=== PATIENT | male | born 1985 | race African-American/Black ===

== ENCOUNTER 2016-08-13 08:46 | Emergency (ER) | payer OTHER ==
[2016-08-13 08:59] VITALS: BP 154/83
--- NOTE | 2016-08-13 10:09 | RAD ---
INDICATION: LEFT wrist pain post fall multiple months ago. Decreased range of motion. Mostly painful on flexion and with pressure on wrist/pushing. COMPARISON: None. TECHNIQUE: AP, lateral, and oblique views LEFT wrist. REPORT: Normal articular alignment. Negative for fracture. No significant arthropathic change evident. Unremarkable soft tissue contours. IMPRESSION: Negative radiographic exam of the LEFT wrist.
--- NOTE | 2016-08-13 10:18 | ED ---
Upper Extremity Pain - HPI Summary HPI Summary: 31M presents with left wrist pain for a couple months. He states that he fell many months ago and thought he broke his wrist on the ulnar side of his left hand. He states he thought the hand healed with an abnormality. He states the pain is worst when he is in the push up position and places weight on that hand. He states he is ambidextrous but uses his left hand the most. He denies any numbness or tingling. He states occasionally he has weakness in his hand. - History of Current Complaint Chief Complaint: EDExtremityUpper Stated Complaint: LEFT HAND INJURY Time Seen by Provider: 08/13/16 09:28 - Allergies/Home Medications Allergies/Adverse Reactions: Allergies Allergy/AdvReac Type Severity Reaction Status Date / Time No Known Allergies Allergy Verified 08/13/16 08:56 PMH/Surg Hx/FS Hx/Imm Hx Endocrine/Hematology History: Denies: Hx Anticoagulant Therapy Cardiovascular History: Denies: Hx Hypertension Infectious Disease History: No Infectious Disease History: Denies: Traveled Outside the [place] in Last 30 Days - Family History Known Family History: Negative: Cardiac Disease - Social History Alcohol Use: Occasionally Substance Use Type: Reports: None Smoking Status (MU): Never Smoked Tobacco Review of Systems Negative: Fever Negative: Chest Pain Negative: Shortness Of Breath Positive: Myalgia - left wrist pain All Other Systems Reviewed And Are Negative: Yes Physical Exam Triage Information Reviewed: Yes Vital Signs On Initial Exam: Initial Vitals Temp Pulse Resp BP Pulse Ox 96.9 F 80 16 154/83 97 08/13/16 08:56 08/13/16 08:56 08/13/16 08:56 08/13/16 08:56 08/13/16 08:56 Vital Signs Reviewed: Yes Appearance: Positive: Well-Appearing Skin: Positive: Warm, Dry Head/Face: Positive: Normal Head/Face Inspection Eyes: Positive: Normal, Conjunctiva Clear Respiratory/Lung Sounds: Positive: Clear to Auscultation, Breath Sounds Present Cardiovascular: Positive: Normal, RRR Musculoskeletal: Positive: Strength/ROM Intact - of left wrist, Other - good pulses, capillary refill < 2 secs, pain over lunate of left wrist,. Negative: Edema Left Diagnostics - Vital Signs Vital Signs Temp Pulse Resp BP Pulse Ox 08/13/16 08:56 96.9 F 80 16 154/83 97 - Laboratory Lab Statement: Any lab studies that have been ordered have been reviewed, and results considered in the medical decision making process. - Radiology wrist Xray Interpretation: No Acute Changes - IMPRESSION: Negative radiographic exam of the LEFT wrist. Radiology Interpretation Completed By: Radiologist Course/Dx - Course Course Of Treatment: 31M presents with left wrist pain for couple months. states had injury a couple months ago and though healed wrong. has increased pain due to starting to work out more. full ROM on exam. do not suspect carpel tunnel as no numbness or tingling. xray normal with no old fx seen. offered brace which patient refused. told to treat conservatively. patient understands and agrees with plan - Diagnoses Differential Diagnosis/HQI/PQRI: Positive: Fracture (Closed), Strain, Sprain Provider Diagnoses: Left wrist pain Discharge - Discharge Plan Condition: Stable Disposition: HOME Patient Education Materials: Wrist Sprain (ED) Referrals: [facility] [place] [facility]YSICIAN REFERRAL [Outside] Additional Instructions: Take Tylenol or ibuprofen every 6 hours as needed for pain Apply ice, rest, elevate Establish care with primary care physician and follow up as soon as possible Return to ED if develop numbness, tingling, inability to move joint, or any new or worsening symptoms
== END 2016-08-13 11:03 | disposition home or self-care (01) ==
LOC: ED 08:46
DX: M25.532 Pain in left wrist (principal)
CPT/HCPCS: 99281

== ENCOUNTER 2017-01-14 10:01 | Emergency (ER) | payer SELFPAY ==
[2017-01-14] MEDS ORDERED: Ondansetron INJ* 2 MG/ML VIAL IV ONE (10:26)
[2017-01-14] MEDS ORDERED: Albuterol/Ipratropium NEB.SOL* Albuterol 2.5 MG/Ipratropium 0.5 MG 3 ML INH ONE (10:28)
[2017-01-14] MEDS: NS 0.9% 1000 ML* 2,000 ML IV ONE ×2 (10:56→10:57)
[2017-01-14 10:59] LABS: Hematocrit 47 % (42-52); Hemoglobin 15.3 g/dl (14.0-18.0); Mean Corpuscular HGB Conc 33 g/dl (31-36); Mean Corpuscular Hemoglobin 27 pg (27-31); Mean Corpuscular Volume 83 fL (80-94); Mean Platelet Volume 9 um3 (7.4-10.4); Red Cell Distribution Width 15 % (10.5-15); White Blood Count 7.7 10^3/ul (3.5-10.8)
[2017-01-14 11:01] LABS: Comments Flag Yes
[2017-01-14 11:02] LABS: Albumin 4.6 g/dL (3.2-5.2); BUN/Creatinine Ratio 13.3 (8-20); C Reactive Protein 1.12 mg/L (< 5.00); Calcium 9.6 mg/dL (8.6-10.3); EGFR African American 105.3 (>60); EGFR Non-African American 81.9 (>60); Total Bilirubin 0.4 mg/dL (0.2-1.0); Total Protein 7.6 g/dL (6.4-8.9)
--- NOTE | 2017-01-14 11:12 | RAD ---
Indication: Cough, shortness of breath. 2 views of the chest including dual energy PA views demonstrate no mediastinal shift. Heart is of normal size and configuration. Lung rowe demonstrate no pleural fluid, pneumonia or pneumothorax. IMPRESSION: No active cardiopulmonary disease is noted.
--- NOTE | 2017-01-14 11:14 | RAD ---
HISTORY: Abdominal pain and vomiting COMPARISONS: None VIEWS: Frontal supine and upright views of the abdomen. FINDINGS: BOWEL: There is a nonobstructive bowel gas pattern. There is a large amount of stool within the colon. CALCULI: There are no abnormal calculi. BONES AND SOFT TISSUES: There are no osseous abnormalities. OTHER FINDINGS: The lung bases are clear. There is no subphrenic gas. IMPRESSION: NONOBSTRUCTIVE BOWEL GAS PATTERN. LARGE AMOUNT OF STOOL WITHIN THE COLON.
--- NOTE | 2017-01-14 13:03 | ED ---
uBster Mojica Angela, scribed for Matthew Moreno MD on 01/14/17 at 1018 . Complex/Multi-Sys Presentation - HPI Summary HPI Summary: This pt is a 31 y/o male presenting to [facility] c/o abd pain and eye drainage bilaterally since yesterday. He describes yellow eye drainage. Pt endorses non- productive cough x3 days. He states that as soon as he eats he gets abd pain and additionally c/o nausea and vomiting. He has been unable to tolerate PO intake. Pt notes he is mildly SOB and has some wheezing. 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 Pt reports 2 days ago he had diarrhea. Pt is an occasional tobacco and alcohol user. He denies any sick contacts. Pt denies any past abd surgeries. - History Of Current Complaint Chief Complaint: EDUpperRespComplaint Time Seen by Provider: 01/14/17 10:10 Hx Obtained From: Patient Onset/Duration: Lasting Days Associated Signs And Symptoms: Positive: SOB, Cough - non-productive, Wheezing, Vomiting, Diarrhea - 2 days ago, now resolved, Abdominal Pain, Other - eye drainage - Allergies/Home Medications Allergies/Adverse Reactions: Allergies Allergy/AdvReac Type Severity Reaction Status Date / Time No Known Allergies Allergy Verified 01/14/17 10:05 PMH/Surg Hx/FS Hx/Imm Hx Endocrine/Hematology History: Denies: Hx Anticoagulant Therapy, Hx Diabetes Cardiovascular History: Denies: Hx Hypertension Infectious Disease History: Denies: Traveled Outside the [place] in Last 30 Days - Family History Known Family History: Negative: Cardiac Disease - Social History Alcohol Use: Occasionally Substance Use Type: Reports: None Smoking Status (MU): Never Smoked Tobacco Review of Systems Negative: Fever, Chills Positive: Drainage - eyes bilateral ENT: Negative Cardiovascular: Negative Positive: Shortness Of Breath, Cough - non-productive Positive: Abdominal Pain, Vomiting, Diarrhea - 1 episode 2 days ago, now resolved, Nausea Genitourinary: Negative Musculoskeletal: Negative Skin: Negative Neurological: Negative All Other Systems Reviewed And Are Negative: Yes Physical Exam - Summary Physical Exam Summary: The patient is well-nourished in no acute distress. The skin is warm and dry and skin color reflects adequate perfusion. HEENT: The head is normocephalic and atraumatic. The pupils are equal and reactive. Nares are patent and without drainage. Mouth reveals moist mucous membranes. There is erythema in the posterior pharynx. The external ears are intact. The ear canals are patent and without drainage. The tympanic membranes are intact. The conjunctivae are injected. There is debris noted around his eyes. Neck is supple with full range of motion and non-tender. There are no carotid bruits. There is no neck vein distension. Respiratory: Chest is non-tender. Lungs have decreased breath sounds and wheezing. Cardiovascular: Hear is regular rate and rhythm. There is no murmur or rub auscultated. There is no peripheral edema and pulses are symmetrical and equal. There are good pulses distally. Abdomen: The abdomen is soft . There is left upper quadrant and left lower quadrant tenderness. There is no rebound or guarding. No Willson's sign or McBurney's point. There is no epigastric pain. There are normal bowel sounds heard in all four quadrants and there is no organomegaly palpated. Musculoskeletal: There is no back pain noted. Extremities are non-tender with full range of motion. There is good capillary refill. There is no peripheral edema or calf tenderness elicited. Neurological: Patient is alert and oriented to person, place and time. The patient has symmetrical motor strength in all four extremities. Psychiatric: The patient has an appropriate affect and does not exhibit any anxiety or depression. Triage Information Reviewed: Yes Vital Signs On Initial Exam: Initial Vitals Temp Pulse Resp BP Pulse Ox 98.4 F 78 18 155/91 95 01/14/17 10:05 01/14/17 10:05 01/14/17 10:05 01/14/17 10:05 01/14/17 10:05 Vital Signs Reviewed: Yes Diagnostics - Vital Signs Vital Signs Temp Pulse Resp BP Pulse Ox 01/14/17 10:05 98.4 F 78 18 155/91 95 - Laboratory Lab Results: Lab Results 01/14/17 01/14/17 01/14/17 Range/Units 10:33 10:33 10:33 WBC 7.7 (3.5-10.8) 10^3/ul RBC 5.60 H (4.0-5.4) 10^6/ul Hgb 15.3 (14.0-18.0) g/dl Hct 47 (42-52) % MCV 83 (80-94) fL MCH 27 (27-31) pg MCHC 33 (31-36) g/dl RDW 15 (10.5-15) % Plt Count 219 (150-450) 10^3/ul MPV 9 (7.4-10.4) um3 Neut % (Auto) 55.9 (38-83) % Lymph % (Auto) 31.0 (25-47) % [place] % (Auto) 6.0 (1-9) % Eos % (Auto) 6.3 H (0-6) % Baso % (Auto) 0.8 (0-2) % Absolute Neuts (auto) 4.3 (1.5-7.7) 10^3/ul Absolute Lymphs (auto) 2.4 (1.0-4.8) 10^3/ul Absolute Monos (auto) 0.5 (0-0.8) 10^3/ul Absolute Eos (auto) 0.5 (0-0.6) 10^3/ul Absolute Basos (auto) 0.1 (0-0.2) 10^3/ul Absolute Nucleated RBC 0.01 10^3/ul Nucleated RBC % 0.1 Sodium 138 (133-145) mmol/L Potassium 4.0 (3.5-5.0) mmol/L Chloride 107 (101-111) mmol/L Carbon Dioxide 25 (22-32) mmol/L Anion Gap 6 (2-11) mmol/L BUN 14 (6-24) mg/dL Creatinine 1.05 (0.67-1.17) mg/dL Est GFR ( Amer) 105.3 (>60) Est GFR (Non-Af Amer) 81.9 (>60) BUN/Creatinine Ratio 13.3 (8-20) Glucose 96 (70-100) mg/dL Lactic Acid 0.7 (0.5-2.0) mmol/L Calcium 9.6 (8.6-10.3) mg/dL Total Bilirubin 0.40 (0.2-1.0) mg/dL AST 24 (13-39) U/L ALT 29 (7-52) U/L Alkaline Phosphatase 50 (34-104) U/L C-Reactive Protein 1.12 (< 5.00) mg/L Total Protein 7.6 (6.4-8.9) g/dL Albumin 4.6 (3.2-5.2) g/dL Globulin 3.0 (2-4) g/dL Albumin/Globulin Ratio 1.5 (1-3) Amylase 27 L (29-103) U/L Lipase 22 (11.0-82.0) U/L Result Diagrams: 01/14/17 10:33 01/14/17 10:33 Lab Statement: Any lab studies that have been ordered have been reviewed, and results considered in the medical decision making process. - Radiology Chest XR Xray Interpretation: No Acute Changes - IMPRESSION: No active cardiopulmonary disease is noted. ED physician has reviewed this radiology report and agrees. Radiology Interpretation Completed By: Radiologist Abdomen XR Xray Interpretation: Positive (See Comments) - IMPRESSION: Nonobstructive bowel gas pattern. Large amount of stool within the colon. ED physician has reviewed this radiology report and agrees. Radiology Interpretation Completed By: Radiologist Re-Evaluation - Re-Evaluation First Eval Re-Evaluation Time: 12:29 Comment: I reviewed the XR results with the pt. Pt reports feeling better but is still a little nauseous. Complex Multi-Symp Course/Dx Assessment/Plan: Pt is a 31 y/o male presenting to the ED c/o abd pain and eye drainage bilaterally since yesterday, additionally c/o coughing and vomiting. Labs, chest XR, and abd XR were obtained. In the ED course, pt was given IV fluids, zofran, and respiratory treatment. Chest XR is negative. Abd XR reveals nonobstructive bowel gas pattern. Large amount of stool within the colon. Elevated BP noted. Pt will be discharged with rx zofran and eye medication. - Diagnoses Differential Diagnoses/HQI/PQRI: Other - pneumonia, bronchitis, sbo, gastritis, pancreatitis, conjunctivits Provider Diagnoses: Gastritis, Bilateral conjunctivitis, Possible URI Discharge - Discharge Plan Condition: Stable Disposition: HOME Prescriptions: Erythromycin OPTH OINT* [Erythromycin 0.5% OPTH OINT*] 1 applic BOTH EYES QID # 1 ophth.oint Ondansetron ODT TAB* [Zofran 4 MG Odt TAB*] 4 mg PO Q8H PRN #10 tab.odt PRN Reason: Nausea Patient Education Materials: Gastritis (ED), Conjunctivitis (ED), Upper Respiratory Infection (ED) Forms: *Work Release Referrals: [facility] PHYSICIAN REFERRAL [Outside] No Primary Care Phys,NOPCP [Primary Care Provider] - The documentation as recorded by the Buster oseguera Angela accurately reflects the service I personally performed and the decisions made by me, Matthew Moreno MD.
[2017-01-14 13:04] VITALS: BP 128/85
== END 2017-01-14 13:08 | disposition home or self-care (01) ==
LOC: ED 10:01
DX: K29.70 Gastritis, unspecified, without bleeding (principal); H10.9 Unspecified conjunctivitis; R06.02 Shortness of breath; R10.9 Unspecified abdominal pain; R19.7 Diarrhea, unspecified; R11.2 Nausea with vomiting, unspecified
CPT/HCPCS: 36415; 71020; 74020; 80053; 82150; 83605; 83690; 85025; 86140; 94640; 99282; A9270-GY; J2405

== ENCOUNTER 2018-02-12 16:27 | Emergency (ER) | payer OTHER ==
[2018-02-12] MEDS ORDERED: Ketorolac INJ* 30 MG/ML 1 ML VIAL IM ONE (18:02)
[2018-02-12] MEDS ORDERED: Dexamethasone TAB* 4 MG PO ONE (18:02)
[2018-02-12] MEDS ORDERED: Polymyx/Trimethoprim OPTH* 10 ML BTL BOTH EYES ONE (18:03)
--- NOTE | 2018-02-12 18:06 | ED ---
Back Pain - HPI Summary HPI Summary: 32-year-old male presents with back pain for the past week. He also admits to irritation of the eye. He states his been having some pus drainage from his eye. He states is greatest on his right. He does not wear contacts or glasses. He states he has been rubbing his eye. No change in vision. He denies any urinary symptoms. No loss of bowel or bladder. No saddle anesthesia. He denies any Fevers. Has lower back on the sides of his lower back. Does not radiate into legs. No weakness. Has tried only Tylenol for the pain. - History of Current Complaint Chief Complaint: EDBackInjuryPain Stated Complaint: BACK PAIN Time Seen by Provider: 02/12/18 17:31 Pain Intensity: 10 - Allergies/Home Medications Allergies/Adverse Reactions: Allergies Allergy/AdvReac Type Severity Reaction Status Date / Time No Known Allergies Allergy Verified 02/12/18 16:42 PMH/Surg Hx/FS Hx/Imm Hx Endocrine/Hematology History: Denies: Hx Anticoagulant Therapy, Hx Diabetes Cardiovascular History: Denies: Hx Hypertension Respiratory History: Denies: Hx Asthma, Hx Chronic Obstructive Pulmonary Disease (COPD) Infectious Disease History: No Infectious Disease History: Denies: Traveled Outside the [place] in Last 30 Days - Family History Known Family History: Negative: Cardiac Disease - Social History Alcohol Use: Rare Substance Use Type: Reports: None Smoking Status (MU): Never Smoked Tobacco Review of Systems Negative: Fever Positive: Erythema Negative: Chest Pain Negative: Shortness Of Breath Positive: Myalgia - back pain All Other Systems Reviewed And Are Negative: Yes Physical Exam Triage Information Reviewed: Yes Vital Signs On Initial Exam: Initial Vitals Temp Pulse Resp BP Pulse Ox 97.7 F 73 18 157/86 96 02/12/18 16:39 02/12/18 16:39 02/12/18 16:39 02/12/18 16:39 02/12/18 16:39 Vital Signs Reviewed: Yes Appearance: Positive: Well-Appearing Skin: Positive: Warm, Dry Head/Face: Positive: Normal Head/Face Inspection Eyes: Positive: EOMI, ALLEN, Conjunctiva Inflammed ENT: Positive: Normal ENT inspection, Pharynx normal, TMs normal Respiratory/Lung Sounds: Positive: Clear to Auscultation, Breath Sounds Present Cardiovascular: Positive: Normal, RRR Musculoskeletal: Positive: Strength/ROM Intact - back, Other - tenderness sides of lower back, no midline tenderness, neg SLR, good pulses, good strength lower extermities Neurological: Positive: Normal Psychiatric: Positive: Normal Diagnostics - Vital Signs Vital Signs Temp Pulse Resp BP Pulse Ox 02/12/18 16:39 97.7 F 73 18 157/86 96 - Laboratory Lab Statement: Any lab studies that have been ordered have been reviewed, and results considered in the medical decision making process. Back Pain Course/Dx - Course Course Of Treatment: 32-year-old male presents with back pain for the past week. He also admits to irritation of the eye. He states his been having some pus drainage from his eye. He states is greatest on his right. He does not wear contacts or glasses. He states he has been rubbing his eye. No change in vision. He denies any urinary symptoms. No loss of bowel or bladder. No saddle anesthesia. He denies any Fevers. Has lower back on the sides of his lower back. Does not radiate into legs. No weakness. Has tried only Tylenol for the pain. On exam tenderness lower back. No midline tenderness. Negative straight leg raise. Neurovascular intact. Conjunctiva injected. Will treat as conjunctivitis with Polytrim; told not improving to follow up with optho. We 'll treat back pain with muscle relaxer. Told to continue Tylenol and ibuprofen. Told to establish Primary. Patient understands agrees the plan. - Diagnoses Differential Diagnosis/HQI/PQRI: Positive: Herniated Disc, Strain, Sprain Provider Diagnoses: Conjunctivitis, Back pain Discharge - Sign-Out/Discharge Documenting (check all that apply): Patient Departure - Discharge Plan Condition: Good Disposition: HOME Prescriptions: Cyclobenzaprine TAB* [Flexeril 10 MG TAB*] 10 mg PO TID PRN #21 tab PRN Reason: Pain Patient Education Materials: Back Pain (ED), Conjunctivitis (ED) Referrals: [facility] [place] [facility] [Outside] Aneesh Wilson MD [Medical Doctor] - Additional Instructions: Take muscle relaxers three times a day Use ibuprofen or Tylenol for pain every 6 hours ice/heat area, move as much as possible Place 1 drop in each eye four times a day for 7 days Wash hands after touching eye Follow up with ophthalmology if no improvement est care with primary Return to ED if develop any new or worsening symptoms - Billing Disposition and Condition Condition: GOOD Disposition: Home
[2018-02-12 19:15] VITALS: BP 139/89
== END 2018-02-12 19:15 | disposition home or self-care (01) ==
LOC: ED 16:27
DX: M54.9 Dorsalgia, unspecified (principal); H10.33 Unspecified acute conjunctivitis, bilateral
CPT/HCPCS: 96372; 99282; J1885; J8540